=== PATIENT | female | born 1980 | race African-American/Black ===

== ENCOUNTER 2017-02-18 16:36 | Emergency (ER) | payer BC, OTHER ==
[~2017-02-18 16:36] MED LIST: ALBUTEROL17 GM; ANTIVERT PO; FERROUS SULFATE; FLEXERIL10 MG PO; LEVOTHYROXINE75 MCG; LISINOPRIL-HCTZ1 T15; NORVASC; PHENERGAN25 MG PO; VOLTAREN75 MG PO; ZOLOFT50 MG
[2017-02-18] MEDS ORDERED: [UNRECOGNIZED DRUG - REMARK] (16:38)
[2017-02-18 17:25] LABS: BASOPHIL# 0.1 X10e3 (0-0.3); BASOPHIL% 0.9 % (0-2.5); EOSINOPHIL# 0.2 X10e3 (0-0.7); EOSINOPHIL% 1.8 % (0.0-7.0); HEMATOCRIT 42.2 % (35.0-45.0); HEMOGLOBIN 14.1 gm/dL (12.0-16.0); LYMPHOCYTE% 28.9 % (17.0-45.0); MEAN CELL VOLUME 91.5 FL (83-96); MEAN CORPUSCULAR HEMOGLOBIN 30.6 PG (28-34); MEAN CORPUSCULAR HGB CONC 33.4 g/dL (30-36); MEAN PLATELET VOLUME 8.8 FL (6.5-11.5); MONOCYTE# 0.5 X10e3 (0-1.0); MONOCYTE% 4.6 % (3.0-12.0); NEUTROPHIL# 6.6 X10e3 (1.5-7.1); NEUTROPHIL% 63.8 % (40-75); PLATELET COUNT 201 X10e3 (140-420); RED BLOOD COUNT 4.61 X10e (3.90-5.30); RED CELL DISTRIBUTION WIDTH 14.3 % (11.0-15.5); WHITE BLOOD COUNT 10.4 X10e3 (4.0-10.5)
[2017-02-18 17:26] LABS: DIFF IND NO
[2017-02-18 17:42] LABS: CALCIUM SERUM 9.4 mg/dL (8.4-10.2); GLOM FILT RATE Estimated 85.2 mL/min (>60); POTASSIUM 3.4 mmol/L (3.5-5.1)
== END 2017-02-18 18:30 | disposition home or self-care (01) ==
LOC: SED 16:36
PROVIDERS: Nurse Practitioner
DX: R51 Headache (principal); T67.5XXA Heat exhaustion, unspecified, initial encounter; I10 Essential (primary) hypertension; J45.909 Unspecified asthma, uncomplicated
CPT/HCPCS: 36415; 80048; 85025; 99284